=== PATIENT | female | born 1950 | race Caucasian/White ===

== ENCOUNTER 2022-10-19 23:30 | Emergency (ER) | payer OTHER ==
[~2022-10-19] VITALS: Ht 162.6 cm; Wt 72.0 kg
[2022-10-20] MEDS ORDERED: VANCOMYCIN 1G PREMIX 200 ML IV ONE
[2022-10-20] MEDS ORDERED: PIPERACILLIN/TAZ 3.375G PREMIX 50 ML IV ONE
[2022-10-20] MEDS ORDERED: SODIUM CHLORIDE 0.9% 1000ML BAG (SEPSIS BOLUS) IV ONE
[2022-10-20 00:56] LABS: HEMOGLOBIN. 10.6 g/dL (12.0-16.0); MEAN CORPUSCULAR HEMOGLOBIN 31.3 pg (28.0-32.0); MEAN CORPUSCULAR VOLUME 94.6 fL (81.0-99.0); PLATELET 66 x1000/uL (130-400); RED BLOOD CELL COUNT 3.38 mill/uL (4.2-5.4); RED CELL DISTRIBUTION WIDTH 15.2 % (11.6-14.6)
[2022-10-20 00:57] LABS: CHLORIDE 81 mEq/L (98-107)
[2022-10-20 01:02] LABS: INR 1.7; PROTHROMBIN TIME 17.7 sec (9.6-11.0)
[2022-10-20] MEDS: ASPIRIN 300MG SUPP PR NR ×2 (01:27→01:51)
[2022-10-20] MEDS ORDERED: POTASSIUM CHLORIDE INJ 40 MEQ in DEXT 5% WATER 250 ML IV ONE (01:30)
[2022-10-20] MEDS: KCL 10MEQ/50ML PREMIX 50 ML IV NR ×2 (01:51→03:36)
[2022-10-20 02:08] LABS: PLATELET ESTIMATE DECREASED
[2022-10-20] MEDS ORDERED: MORPHINE SULFATE 2 MG/ML CPJ (NOT FOR IM USE) IV PRN (03:15)
[2022-10-20 07:45] VITALS: BP 0/0
== END 2022-10-20 07:45 ==
LOC: ER 23:30 → CANBEDREQ 10-20 09:35
DX: R41.82 Altered mental status, unspecified (principal); R17 Unspecified jaundice; C25.9 Malignant neoplasm of pancreas, unspecified; I10 Essential (primary) hypertension
CPT/HCPCS: 36415; 71045; 80053; 82140; 83605; 83880; 84145; 84484; 85025; 85610; 87040; 87077; 87186; 93005; 96365; 96368; 96375; 99291; J2270; J2543; J3370; J3480; J7030